=== PATIENT | female | born 1990 | race Caucasian/White ===

== ENCOUNTER 2019-01-31 20:52 | Emergency (ER) | payer OTHER, MEDICAID ==
[2019-01-31] MEDS: IBUPROFEN 600 MG TAB PO (21:31)
== END 2019-01-31 22:04 | disposition home or self-care (01) ==
LOC: FTE 20:52
DX: R07.89 Other chest pain (principal); M62.838 Other muscle spasm
CPT/HCPCS: 93005; 99283-25